=== PATIENT | male | born 1975 | race Caucasian/White ===

== ENCOUNTER 2022-06-27 06:39 | Day surgery (SDC) | payer MEDICARE, MEDICAID ==
[2022-06-27] MEDS ORDERED: Lactated Ringers 1,000 ML IV SCH ×2 (07:00→09:30)
[2022-06-27] MEDS ORDERED: fentaNYL 50 MCG/ML SDV IVPUSH PRN (07:14)
[2022-06-27] MEDS ORDERED: HYDROmorphone 1 MG/ML Syringe IVPUSH PRN (07:14)
[2022-06-27] MEDS ORDERED: Morphine 2 MG/ML SYRINGE IVPUSH PRN (07:14)
[2022-06-27] MEDS ORDERED: Naloxone 0.4 MG/ML SDV IVPUSH PRN (07:14)
[2022-06-27] MEDS ORDERED: Ondansetron 4 MG/2 ML SDV IVPUSH PRN (07:14)
[2022-06-27] MEDS ORDERED: Albuterol 0.083% 2.5 MG/3 ML Neb Soln NEB PRN (07:14)
[2022-06-27] MEDS ORDERED: Metoclopramide 10 MG/2 ML SDV IVPUSH PRN (07:14)
[2022-06-27] MEDS ORDERED: Dexmedetomidine 200 MCG/2 ML SDV ONE ×2 (07:52→07:53)
[2022-06-27] MEDS ORDERED: Propofol 200 MG/20 ML SDV ONE ×2 (07:52→08:08)
[2022-06-27] MEDS ORDERED: fentaNYL 100 MCG/2 ML SDV ONE (07:52)
[2022-06-27] MEDS ORDERED: Ondansetron 4 MG/2 ML SDV ONE (07:53)
[2022-06-27] MEDS ORDERED: Lidocaine 2% 5 ML SDV ONE (07:53)
[2022-06-27] MEDS ORDERED: Water For Injection, Sterile 20 ML ONE (07:53)
[2022-06-27] MEDS ORDERED: Dexamethasone 4 MG/ML 5 ML MDV ONE (07:53)
[2022-06-27] MEDS ORDERED: Bupivacaine 0.5% 30 ML SDV ONE (08:04)
[2022-06-27] MEDS ORDERED: Ketorolac 30 MG/ML SDV ONE (08:48)
[2022-06-27] MEDS ORDERED: Acetaminophen/HYDROcodone 325-10 MG Tab PO PRN (09:16)
[2022-06-27] MEDS: Racepinephrine 2.25% 0.5 ML Neb Soln ONE (10:11)
== END 2022-06-27 12:00 | disposition home or self-care (01) ==
LOC: MW.SDS 06:39
PROVIDERS: ATTEND Surgery
DX: C44.619 Basal cell carcinoma of skin of left upper limb, including shoulder (principal); G47.33 Obstructive sleep apnea (adult) (pediatric); F31.9 Bipolar disorder, unspecified; E66.9 Obesity, unspecified; E83.01 Wilson's disease; Z88.8 Allergy status to other drugs, medicaments and biological substances; Z98.890 Other specified postprocedural states; Z79.899 Other long term (current) drug therapy; Z68.34 Body mass index [BMI] 34.0-34.9, adult
CPT/HCPCS: 13121; 23076; 94640; J1100; J1885; J2405; J2704; J3010; J3490; J7120